=== PATIENT | female | born 1955 | race Caucasian/White ===

== ENCOUNTER 2020-05-07 00:11 | Outpatient (CLI) | payer MEDICARE, SELFPAY ==
[2020-05-07 18:54] LABS: SARS-CoV-2 RNA PCR Negative
== END 2020-05-07 00:12 | disposition home or self-care (01) ==
LOC: ANHCOVIDDT 00:11
PROVIDERS: PCP Family Medicine; Visit Provider Internal Medicine Gastroenterology
DX: Z20.828 Contact with and (suspected) exposure to other viral communicable diseases (principal)
CPT/HCPCS: 87635; C9803; U0003

== ENCOUNTER 2020-05-09 01:33 | Day surgery (SDC) | payer MEDICARE, SELFPAY ==
[2020-05-02 13:02] VITALS: BMI 39.3
[2020-05-09 06:17] VITALS: BP 162/74; PULSE 84; RESP 16; TEMP 36.7; O2SAT 98; BMI 38.7
[2020-05-09] MEDS: LACTATED RINGERS 1,000 ML 150 ML IV CONT (06:26)
--- NOTE | 2020-05-09 07:47 | WPDANESEPPF ---
Anes - Initial Pre Proc Eval Procedure: Operation Date: 05/09/20 07:30 Proposed Procedures p Screening Colonoscopy - Guy Elizabeth MD Date/Time: 05/09/20 07:47 Surgeon: Guy Elizabeth MD Pre Op Diagnosis: Hx Colon polyps, Family Hx of Colon CA Patient Data Age: 65 Gender: F Height: 5 ft 4 in Weight: 102.4 kg Last Vital Signs Temp 98.1 F 05/09/20 06:17 Pulse 84 05/09/20 06:17 Resp 16 05/09/20 06:17 BP 162/74 H 05/09/20 06:17 Pulse Ox 98 05/09/20 06:17 Allergies Allergy/AdvReac Type Severity Reaction Status Date / Time propofol AdvReac Nausea Verified 05/09/20 06:16 CONTROL PILLS Allergy Severe BLOOD Uncoded 05/09/20 06:16 CLOTS IN LEGS Home Medications Medication Instructions Recorded Confirmed Type amlodipine 10 mg-benazepril 20 mg 1 cap PO DAILY #90 cap 10/15/19 05/02/20 Rx capsule atorvastatin 10 mg tablet 10 mg PO DAILY #90 tablet 01/10/20 05/02/20 Rx levothyroxine 125 mcg capsule 125 mcg PO DAILY #90 cap 04/09/20 05/02/20 Rx potassium chloride 20 mEq 20 meq PO DAILY #90 tablet 04/09/20 05/02/20 Rx tablet,extended release indapamide 2.5 mg tablet 5 mg PO DAILY #180 tablet 04/30/20 05/02/20 Rx omeprazole 20 mg capsule,delayed 20 mg PO DAILY #90 cap 04/30/20 05/02/20 Rx release aspirin [Adult Low Dose Aspirin] 81 mg PO DAILY 05/02/20 05/02/20 History multivit with min-folic acid 0.4 mg PO DAILY 05/02/20 05/02/20 History [Adult One Daily Multivitamin] Patient hx anesthesia problems: none Family hx anesthesia problems: none PMFSH Past Medical History Medical History (Updated 05/09/20 @ 07:47 by Amrik Cali MD) Hyperlipidemia Hypertension Hypothyroid Obesity Family History Family History (System 03/22/20 @ 15:27 by Cecile Arreola) Father Carcinoma of colon Patient's father is Mother Family history of Alzheimer's disease Other Family history of arthritis Family history of cardiovascular disease Hypertension Social History Social History (System 03/22/20 @ 15:27 by Cecile Arreola) Smoking status: Never smoker Smoking end date: 11/09/00 Alcohol intake: current Anes - Eval Final PreProcedure Day of Procedure 05/09/20 07:47 Patient weight: obese Heart: regular rate and rhythm Lungs: clear to auscultation Airway: Mallampati scale class III Neurological: alert and oriented Last oral intake: >/= 8 hours ASA classification: III Emergent: no Anesthetic plan: proceed Anesthesia type and monitoring: general GIVS and standard monitoring Informed Consent: The patient's anesthetic plan and its attendant risks and benefits were discussed with the patient/family/POA. Questions were solicited and answers provided to the satisfaction of the patient/family/POA.
[2020-05-09 07:54] VITALS: BP 106/43; PULSE 74; RESP 20; O2SAT 98
--- NOTE | 2020-05-09 07:55 | WPDGICN ---
Assessment and Plan Assessment and plan (1) Family history of colon cancer in father: Code(s): Z80.0 - Family history of malignant neoplasm of digestive organs Status: Acute Assessment and Plan: Patient's father had colon cancer. Patient also has a history of colon polyp on previous colonoscopy many years ago. At this time she presents for surveillance colonoscopy. This report follow separately continued follow-up very 5 years is advised because of her family history. GI Consult Note Consult date/time: 05/09/20 07:55 HPI: Jennie Schreiber is a 65 year old female seen in evaluation at the request of Dr William Ch.Patient presents for screening colonoscopy. She states that her current weight appetite bowel movements are normal. She denies abdominal pain. She denies any blood in her stools. In the past she has had colon polyps approximately 10 years ago. Family history is significant that her father had colon cancer. Review of Systems Review of Systems: All systems reviewed & are unremarkable except as noted in HPI and below PMFSH Past Medical History Medical History Hyperlipidemia Hypertension Hypothyroid Obesity Family History Family History Father Carcinoma of colon Patient's father is Mother Family history of Alzheimer's disease Other Family history of arthritis Family history of cardiovascular disease Hypertension Social History Social History Smoking status: Never smoker Smoking end date: 11/09/00 Alcohol intake: current Meds Home Medications and Allergies Home Medications Medication Instructions Recorded Confirmed Type amlodipine 10 mg-benazepril 20 mg 1 cap PO DAILY #90 cap 10/15/19 05/02/20 Rx capsule atorvastatin 10 mg tablet 10 mg PO DAILY #90 tablet 01/10/20 05/02/20 Rx levothyroxine 125 mcg capsule 125 mcg PO DAILY #90 cap 04/09/20 05/02/20 Rx potassium chloride 20 mEq 20 meq PO DAILY #90 tablet 04/09/20 05/02/20 Rx tablet,extended release indapamide 2.5 mg tablet 5 mg PO DAILY #180 tablet 04/30/20 05/02/20 Rx omeprazole 20 mg capsule,delayed 20 mg PO DAILY #90 cap 04/30/20 05/02/20 Rx release aspirin [Adult Low Dose Aspirin] 81 mg PO DAILY 05/02/20 05/02/20 History multivit with min-folic acid 0.4 mg PO DAILY 05/02/20 05/02/20 History [Adult One Daily Multivitamin] Allergies Allergy/AdvReac Type Severity Reaction Status Date / Time propofol AdvReac Nausea Verified 05/09/20 06:16 CONTROL PILLS Allergy Severe BLOOD Uncoded 05/09/20 06:16 CLOTS IN LEGS Vital Signs Vital Signs - 24 hr 05/09/20 06:17 Temperature 36.7 C Pulse Rate 84 Respiratory Rate 16 Blood Pressure 162/74 H Pulse Oximetry 98 Exam Narrative: Exam Narrative: Physical exam reveals patient to be alert. Vital signs stable. HEENT exam unremarkable. She is anicteric. Lungs are clear to auscultation and percussion. Heart is without murmur or extra sounds. Abdominal exam bowel sounds are present soft nontender with no hepatosplenomegaly. Digital external rectal exam is normal.
[2020-05-09 08:04] VITALS: BP 115/44; PULSE 71; RESP 20; O2SAT 97
[2020-05-09 08:14] VITALS: BP 161/79; PULSE 76; RESP 17; O2SAT 99
== END 2020-05-09 08:41 | disposition home or self-care (01) ==
PROVIDERS: PCP Family Medicine; Visit Provider Internal Medicine Gastroenterology
PROC: 0DJD8ZZ Inspection of Lower Intestinal Tract, Via Natural or Artificial Opening Endoscopic (ICD-10-PCS; CPT 45378; principal; 2020-05-09 07:30)
DX: Z12.11 Encounter for screening for malignant neoplasm of colon (principal); D12.0 Benign neoplasm of cecum; K57.30 Diverticulosis of large intestine without perforation or abscess without bleeding; K64.8 Other hemorrhoids; Z80.0 Family history of malignant neoplasm of digestive organs; I10 Essential (primary) hypertension; E78.5 Hyperlipidemia, unspecified; E03.9 Hypothyroidism, unspecified; E66.9 Obesity, unspecified; Z68.38 Body mass index [BMI] 38.0-38.9, adult; Z79.82 Long term (current) use of aspirin
CPT/HCPCS: 45385; 88305; J2704; J7120

== ENCOUNTER 2020-09-03 07:24 | Outpatient (CLI) | payer MEDICARE, SELFPAY ==
--- NOTE | ~2020-09-03 | MM_ITS ---
EXAMINATION: MM screening [facility] BI w dipti HISTORY: Screening mammogram TECHNIQUE: Craniocaudal and mediolateral oblique 3-D tomosynthesis images were obtained and synthetic 2-D images were generated. CAD analysis was submitted and interpreted. COMPARISON: 08/31/2019, 07/29/1918, 07/20/2017 BREAST PARENCHYMAL COMPOSITION: There are scattered areas of fibroglandular density. FINDINGS: A mass in the anterior third inner right breast is stable on multiple prior examinations, c onsistent with a benign finding. There is no evidence of suspicious mass, calcification, or senior sharepoint architect ural distortion to suggest malignancy in either breast. There has been no suspicious interval change. IMPRESSION: 1. No mammographic evidence of malignancy. 2. Recommend routine screening mammography in one year. BI-RADS Category 2: Benign finding(s). Reviewed, dictated and finalized at location A.
== END 2020-09-03 07:25 | disposition home or self-care (01) ==
PROVIDERS: PCP Family Medicine; Visit Provider Physician Assistant Medical
DX: Z12.31 Encounter for screening mammogram for malignant neoplasm of breast (principal)
CPT/HCPCS: 77063; 77067

== ENCOUNTER 2021-09-05 07:41 | Outpatient (CLI) | payer MEDICARE, SELFPAY ==
--- NOTE | ~2021-09-05 | DEXA_ITS ---
Bone Density Report Name: Jennie Schreiber Age: 66 Sex: Female Ethnicity: White Date of : 1955 Indication: postmenopausal; prior fracture; hysterectomy; Referring Provider: Marie Sauceda Study: Bone densitometry was performed. Exam Date: September 05, 2021 Accession number: [id number] Bone Density: Region BMD T-score Z-score Classification AP Spine (L1-L4) 0.928 -1.1 0.9 Osteopenia Femoral Neck (Left) 0.749 -0.9 0.8 Normal Total Hip (Left) 1.042 0.8 2.2 Normal Total Hip Bilateral Avg 1.045 0.8 2.2 Normal Femoral Neck (Right) 0.789 -0.5 1.1 Normal Total Hip (Right) 1.046 0.9 2.2 Normal World Health Organization criteria for BMD impression classify patients as: Normal (T-score at or above -1.0), Osteopenia (T-score between -1.0 and -2.5), or Osteoporosis (T-score at or below -2.5). 10-year Fracture Risk(1): Major Osteoporotic Fracture 12% Hip Fracture 0.9% Reported Risk Factors: [place] (), Neck BMD=0.749, BMI=37.0, previous fracture (1) FRAX(R) Version 3.08. Fracture probability calculated for an untreated patient. Fracture probability may be lower if the patient has received treatment. Previous Exams: Region Exam Age BMD T-score BMD Change BMD Change Date g/cm2 vs Baseline vs Previous AP Spine(L1-L4) 09/05/2021 66 0.928 -1.1 0.018(2.0%)# -0.005(-0.5%) 08/31/2019 64 0.933 -1.0 0.024(2.6%)# -0.017(-1.8%)# 05/22/2012 57 0.949 -0.9 0.040(4.4%)# 0.005(0.6%)# 12/09/2008 53 0.944 -0.9 0.035(3.8%)* 0.035(3.8%)* 05/06/2006 51 0.909 -1.3 Total Hip(Left) 09/05/2021 66 1.042 0.8 -0.111(-9.6%)# -0.067(-6.0%)* 08/31/2019 64 1.109 1.4 -0.044(-3.8%)# -0.009(-0.8%)# 05/22/2012 57 1.118 1.4 -0.035(-3.0%)# -0.073(-6.2%)# 12/09/2008 53 1.192 2.0 0.038(3.3%)* 0.038(3.3%)* 05/06/2006 51 1.153 1.7 Total Hip(Right) 09/05/2021 66 1.046 0.9 -0.070(-6.2%)# -0.039(-3.6%)* 08/31/2019 64 1.085 1.2 -0.030(-2.7%)# -0.044(-3.9%)# 05/22/2012 57 1.129 1.5 0.014(1.2%)# -0.034(-2.9%)# 12/09/2008 53 1.163 1.8 0.048(4.3%)* 0.048(4.3%)* 05/06/2006 51 1.115 1.4 *Denotes significance at 95% confidence level, LSC for AP Spine = 0.022 g/cm2, LSC for Total Hip = 0.027 g/cm2 Clinical Information Provided by Patient: Has had a low trauma fracture Has used the following medications: Vitamin D Has the following medical conditions: Hysterectomy Patient maximum height was 63.5 Menopause Age: 49 Drinks c
== END 2021-09-05 07:42 | disposition home or self-care (01) ==
LOC: ANHIMG 07:47
PROVIDERS: PCP Family Medicine; Visit Provider Physician Assistant Medical
DX: Z78.0 Asymptomatic menopausal state (principal); Z13.820 Encounter for screening for osteoporosis; M85.88 Other specified disorders of bone density and structure, other site
CPT/HCPCS: 77080

== ENCOUNTER 2021-10-07 07:12 | Outpatient (CLI) | payer MEDICARE, SELFPAY ==
--- NOTE | ~2021-10-07 | MM_ITS ---
EXAMINATION: MM screening [facility] BI w dipti HISTORY: Screening mammogram TECHNIQUE: Craniocaudal and mediolateral oblique 3-D tomosynthesis images were obtained and synthetic 2-D images were generated. CAD analysis was submitted and interpreted. COMPARISON: 09/03/2020, 08/31/2019, 08/07/2018 bilateral screening mammogram examinations BREAST PARENCHYMAL COMPOSITION: The breasts are almost entirely fatty. FINDINGS: Occasional benign calcifications of both breasts. There is no evidence of suspicious mass, calcification, or architectural distortion to suggest malignancy in either breast. There has been no suspicious interval change. IMPRESSION: 1. No mammographic evidence of malignancy. 2. Recommend routine screening mammography in one year. BI-RADS Category 2: Benign finding(s). Reviewed, dictated and finalized at location A. ING HOUSE LABORER
== END 2021-10-07 07:13 | disposition home or self-care (01) ==
LOC: ANHIMG 07:15
PROVIDERS: PCP Family Medicine; Visit Provider Physician Assistant Medical
DX: Z12.31 Encounter for screening mammogram for malignant neoplasm of breast (principal)
CPT/HCPCS: 77063; 77067

== ENCOUNTER 2022-10-09 07:20 | Outpatient (CLI) | payer MEDICARE, SELFPAY ==
--- NOTE | ~2022-10-09 | MM_ITS ---
EXAMINATION: MM screening [facility] BI w dipti HISTORY: Screening mammogram TECHNIQUE: Craniocaudal and mediolateral oblique 3-D tomosynthesis images were obtained and synthetic 2-D images were generated. CAD analysis was submitted and interpreted. COMPARISON: 10/07/2021, 09/03/2020, 08/31/2019 BREAST PARENCHYMAL COMPOSITION: There are scattered areas of fibroglandular density. FINDINGS: No suspicious mass, calcification, or architectural distortion are identified in either prosper ast to suggest malignancy. There has been no suspicious interval change. IMPRESSION: 1. No mammographic evidence of malignancy. 2. Recommend routine screening mammography in one year. BI-RADS Category 1: Negative Reviewed, dictated and finalized at location A. DROPPER
== END 2022-10-09 07:21 | disposition home or self-care (01) ==
PROVIDERS: PCP Family Medicine; Visit Provider Physician Assistant Medical
DX: Z12.31 Encounter for screening mammogram for malignant neoplasm of breast (principal)
CPT/HCPCS: 77063; 77067

== ENCOUNTER 2023-10-12 07:15 | Outpatient (CLI) | payer MEDICARE, SELFPAY ==
--- NOTE | ~2023-10-12 | MM_ITS ---
EXAMINATION: MM screening [facility] BI w dipti HISTORY: Screening mammogram TECHNIQUE: Craniocaudal and mediolateral oblique 3-D tomosynthesis images were obtained and synthetic 2-D images were generated. CAD analysis was submitted and interpreted. COMPARISON: 10/09/2022, 10/07/2021, 09/03/2020 BREAST PARENCHYMAL COMPOSITION: There are scattered areas of fibroglandular density. FINDINGS: No suspicious mass, calcification, or architectural distortion are identified in either prosper ast to suggest malignancy. There has been no suspicious interval change. IMPRESSION: 1. No mammographic evidence of malignancy. 2. Recommend routine screening mammography in one year. BI-RADS Category 1: Negative Reviewed, dictated and finalized at location A. DER LAP
== END 2023-10-12 07:16 | disposition home or self-care (01) ==
LOC: ANHIMG 07:17
PROVIDERS: PCP Family Medicine; Visit Provider Nurse Practitioner Family
DX: Z12.31 Encounter for screening mammogram for malignant neoplasm of breast (principal)
CPT/HCPCS: 77063; 77067

== ENCOUNTER 2024-06-15 08:07 | Emergency (ER) | payer MEDICARE, SELFPAY ==
--- NOTE | 2024-06-15 08:08 | ED.FEMALEGU ---
HPI - Female Genitourinary General Chief complaint: Urogenital-Female Stated complaint: UTI Time Seen by Provider: 06/15/24 08:08 Source: patient Mode of arrival: ambulatory Limitations: no limitations History of Present Illness HPI Narrative: Jennie is a 69-year-old female patient presenting to the clinic today with complaints of possible UTI. She reports she has had symptoms for approximately 10 days. Symptoms include burning, frequency, urgency, low urine output and feeling as though she needs to constantly go-incomplete emptying. She denies any back pain, fevers, chills, body aches, or abdominal pain. Related Data Home Medications Medication Instructions Recorded Confirmed aspirin 81 mg tablet,delayed 81 mg PO DAILY 05/02/20 06/15/24 release (Adult Low Dose Aspirin) multivitamin with minerals-folic 0.4 mg PO DAILY 05/02/20 06/15/24 acid 0.4 mg tablet (Adult One Daily Multivitamin) cetirizine 10 mg tablet (24Hour 10 mg PO DAILY PRN allergies 06/23/22 06/15/24 Allergy) Allergies Allergy/AdvReac Type Severity Reaction Status Date / Time propofol AdvReac Nausea Verified 06/15/24 08:10 CONTROL PILLS Allergy Severe BLOOD Uncoded 06/15/24 08:10 CLOTS IN LEGS Review of Systems Review of Systems: Pertinent positives per HPI. Patient denies any fever, chills, rash, headache, visual changes, dizziness, cough, runny nose, sore throat, shortness of breath, chest pain, palpitations, nausea, vomiting, diarrhea, constipation, abdominal pain. [facility] Past Medical History Medical History (Updated 06/15/24 @ 08:30 by Michael Lopez APRN) BMI 34.0-34.9,adult BMI 36.0-36.9,adult BMI 37.0-37.9, adult Hyperlipidemia Hypertension Hypothyroid Obesity Family History Family History Father Carcinoma of colon Patient's father is Mother Family history of Alzheimer's disease Other Family history of arthritis Family history of cardiovascular disease Hypertension Social History Social History Smoking status: Former smoker (2000) Smoking end date: 11/09/00 Alcohol intake: current Substance use: never Substance use type: does not use Lack of Transportation: No Lack of Food: Never True Current Housing: I Have Housing Concerned About Future Housing: No Difficulty Paying Gas/Electric Bills: No Difficulty Paying for Meds: No Currently Unemployed: No Education: Trade/Vocational Certificate Difficulty w/ Childcare or Family Care: No Living arrangements: with family Comments At the time of my signature, I reviewed and agree with the nursing past medical, surgical, social, and family history. There is no relevant family history pertinent to the patient complaint. Exam Narrative: General: Well-developed, obese, in no apparent distress. Head: Normocephalic, atraumatic. Cardio: Regular rate and rhythm, s1 and s2 normal, no murmur appreciated. Resp: Clear to auscultation bilaterally, no rhonchi, rales, wheezing or rubs. Abdomen: Soft, pliable, bowel sounds present in all quadrants, non-tender to palpation, no organomegly, no CVAT tenderness. Course Course Emergency Course: Portions of this record may have been created with voice recognition software. Level of Care: Express Care Visit Vital Signs Vital signs: Vital signs reviewed MDM - Female Genitourinary MDM Narrative Medical decision making narrative: At the time of visit patient is resting comfortably on the exam table. Patient appears to be nontoxic. Labs: Urine dip positive for 1+ leukocyte and trace of blood. Plan: I suspect patient has urinary tract infection. Prescriptions for ciprofloxacin was sent to the pharmacy. Urine culture was sent to the lab. Supportive measures were discussed with the patient and they voiced understanding discharge instructions and agree
[2024-06-15 08:19] VITALS: BP 143/58; PULSE 83; RESP 18; TEMP 36.8; O2SAT 99
[2024-06-15 08:28] LABS: EDUAAPPEAR Clear; EDUABILI Negative; EDUABLOOD Trace; EDUACOLOR1 Yellow; EDUAGLUCOSE Negative; EDUAKETONE Negative; EDUALEUKO 1+; EDUANITRATE Negative; EDUAPROTEIN Negative; EDUASPGRAVITY 1.015; EDUAUROBILI 0.2
== END 2024-06-15 08:35 | disposition home or self-care (01) ==
PROVIDERS: Emergency Provider Nurse Practitioner Family; PCP Family Medicine
DX: N30.01 Acute cystitis with hematuria (principal); Z87.891 Personal history of nicotine dependence; E78.5 Hyperlipidemia, unspecified; I10 Essential (primary) hypertension; E03.9 Hypothyroidism, unspecified; E66.9 Obesity, unspecified; Z68.34 Body mass index [BMI] 34.0-34.9, adult; Z79.82 Long term (current) use of aspirin
CPT/HCPCS: 81003; 87077; 87086; 87088; 87186; 99213; G0463

== ENCOUNTER 2024-10-14 07:03 | Outpatient (CLI) | payer MEDICARE, SELFPAY ==
--- NOTE | ~2024-10-14 | MM_ITS ---
EXAMINATION: MM screening [facility] BI w dipti HISTORY: Screening TECHNIQUE: Craniocaudal and mediolateral oblique 3-D tomosynthesis images were obtained and synthetic 2-D images were generated. CAD analysis was submitted and interpreted. COMPARISON: Comparison to multiple prior studies sequentially, with oldest reviewed study dated 08/07. BREAST PARENCHYMAL COMPOSITION: Not Dense. The breasts are almost entirely fatty. FINDINGS: There is no evidence of suspicious mass, calcification, or architectural distortion to sugg est malignancy in either breast. There has been no suspicious interval change. IMPRESSION: 1. No mammographic evidence of malignancy. 2. Recommend routine screening mammography in one year. BI-RADS Category 1: Negative Reviewed, dictated and finalized at location B. SHING FRAME RUNNER
--- NOTE | ~2024-10-14 | DEXA_ITS ---
Bone Density Report Name: LIBERTAD TATUM Age: 69 Sex: Female Ethnicity: White Date of : 1955 Indication: postmenopausal; screening for osteoporosis; cancer; hysterectomy; Referring Provider: BARRON MYRICK Study: Bone densitometry was performed. Exam Date: October 14, 2024 Accession number: [id number] Bone Density: Region BMD T-score Z-score Classification AP Spine(L1-L4) 0.853 -1.8 0.4 Osteopenia Femoral Neck (Left) 0.746 -0.9 0.9 Normal Total Hip (Left) 1.029 0.7 2.3 Normal Femoral Neck (Right) 0.657 -1.7 0.1 Osteopenia Total Hip (Right) 1.056 0.9 2.5 Normal Total Hip Mean 1.042 0.8 2.4 Normal World Health Organization criteria for BMD impression classify patients as: Normal (T-score at or above -1.0), Osteopenia (T-score between -1.0 and -2.5), or Osteoporosis (T-score at or below -2.5). 10-year Fracture Risk(1): Major Osteoporotic Fracture 9.4% Hip Fracture 1.5% Reported Risk Factors: [place] (), Neck BMD=0.657, BMI=41.0 (1) FRAX(R) Version 3.08. Fracture probability calculated for an untreated patient. Fracture probability may be lower if the patient has received treatment. Clinical Information Provided by Patient: Has used the following medications: Vitamin D, multi vit Has the following medical conditions: Cancer, Hysterectomy, thyroid med/ skin CA Patient maximum height was 64 Menopause Age: 49 No regular weight bearing exercise Drinks caffeinated beverages Onset of menses at age 15 Number of children 3 Impression: The patient has low bone mass, based on the Total Spine T-score. The patient has an estimated ten-year risk of hip fracture of 1.5% and an estimated ten-year risk of major fracture of 9.4%, based on the WHO FRAX algorithm. Discussion: BONE DENSITY IS LOW AT ONE OR MORE SKELETAL SITES. This patient's lowest T-score is low at one or more skeletal sites. It meets the World Health Organization's (WHO) criteria for ?low bone mass? (T-score between -1.0 and -2.5). The patient's 10-year risk of fracture as calculated by FRAX is less than the threshold where pharmacological therapy is recommended by the National Osteoporosis Foundation (NOF). However, all treatment decisions require clinical judgment and consideration of individual patient factors, including patient preferences, comorbidities, previous drug use, risk factors not captured in the FRAX model (e.g., frailty, falls, vitamin D deficiency, increased bone turnover, interval significant decline in bone density) and possible under or overestimation of fracture risk by FRAX. The patient should follow a healthful lifestyle (good nutrition with adequate calcium and vitamin D, and appropriate weight-bearing exercise). Follow-Up: Consider repeating this study in 2 to 3 years to reassess this patient's status, or sooner if there is some new clinical indication. Reported by: DAMARIS on 10/14/2024 7:49:00 AM. Reviewed, dictated and finalized at location AEleazar BADILLO
== END 2024-10-14 07:04 | disposition home or self-care (01) ==
LOC: ANHIMG 07:05
PROVIDERS: PCP Family Medicine; Visit Provider Nurse Practitioner Family
DX: M85.89 Other specified disorders of bone density and structure, multiple sites (principal); Z78.0 Asymptomatic menopausal state; Z12.31 Encounter for screening mammogram for malignant neoplasm of breast
CPT/HCPCS: 77063; 77067; 77080

== ENCOUNTER 2025-03-20 07:15 | Outpatient (RCR) | payer MEDICARE, SELFPAY ==
[2024-12-27 09:00] VITALS: PULSE 78
== END 2025-03-20 09:12 | disposition home or self-care (01) ==
LOC: ANHCPREHAB 07:15
PROVIDERS: PCP Family Medicine; Visit Provider Internal Medicine Cardiovascular Disease
DX: Z95.5 Presence of coronary angioplasty implant and graft (principal)
CPT/HCPCS: 93798

== ENCOUNTER 2025-10-18 07:44 | Outpatient (CLI) | payer MEDICARE, SELFPAY ==
--- NOTE | ~2025-10-18 | MM_ITS ---
EXAMINATION: MM screening [facility] BI w dipti HISTORY: Screening. TECHNIQUE: Craniocaudal and mediolateral oblique 3-D tomosynthesis images were obtained and synthetic 2-D images were generated. CAD analysis was submitted and interpreted. COMPARISON: 2023, 2022, and 2021. BREAST PARENCHYMAL COMPOSITION: Not Dense: There are scattered areas of fibroglandular FINDINGS: No suspicious masses are seen. There are no suspicious calcifications. No unexplained architectural distortion is seen. There are no skin or nipple abnormalities identified. There is no adenopathy seen on the images submitted. IMPRESSION: No mammographic evidence to suggest malignancy is seen. The patient may return to screening mammography as per ACR guidelines. BI-RADS 1 - Negative. Reviewed, dictated and finalized at location C. LATHE OPERATOR
== END 2025-10-18 07:45 | disposition home or self-care (01) ==
LOC: ANHFOHIMG 07:45
PROVIDERS: PCP Family Medicine; Visit Provider Nurse Practitioner Family
DX: Z12.31 Encounter for screening mammogram for malignant neoplasm of breast (principal)
CPT/HCPCS: 77063; 77067